=== PATIENT | male | born 1955 | race Caucasian/White ===

== ENCOUNTER 2016-11-04 12:29 | Emergency (ER) | payer MEDICAID ==
[~2016-11-04] VITALS: Ht 152.4 cm; Wt 71.0 kg
[2016-11-04] MEDS ORDERED: TETRACAINE 0.5% OPHTH DROPS 4ML LEFTEYE ONE (13:00)
[2016-11-04 13:01] VITALS: BP 163/84
[2016-11-04] MEDS ORDERED: FLUORESCEIN SODIUM 1MG/STRIP LEFTEYE ONE (13:15)
== END 2016-11-04 13:37 | disposition home or self-care (01) ==
LOC: ER 13:16
DX: S05.02XA Injury of conjunctiva and corneal abrasion without foreign body, left eye, initial encounter (principal); E78.00 Pure hypercholesterolemia, unspecified; X58.XXXA Exposure to other specified factors, initial encounter; Y93.89 Activity, other specified; Y92.89 Other specified places as the place of occurrence of the external cause; Y99.8 Other external cause status
CPT/HCPCS: 99283